=== PATIENT | male | born 1980 | race Native Hawaiian/Other Pacific Islander ===

== ENCOUNTER 2017-03-27 11:33 | Emergency (ER) | payer SELFPAY ==
[2017-03-27 11:47] VITALS: O2SAT 100
[2017-03-27 13:03] LABS: BASO # 0.1 K/uL (0.0-0.2); BASO % 1.1 % (0.0-2.0); EOS % 0.4 % (0.0-4.0); HEMATOCRIT 45.3 % (35.0-51.0); LYMPH # 1.8 K/uL (1.0-4.3); LYMPH % 27.5 % (20.0-40.0); MEAN CELL VOLUME 75.7 fL (80.0-94.0); MEAN CORPUSCULAR HEMOGLOBIN 24.2 pg (27.0-31.0); MEAN CORPUSCULAR HGB CONC 31.9 g/dL (33.0-37.0); MEAN PLATELET VOLUME 10.7 fL (7.2-11.7); MONO # 0.5 K/uL (0.0-0.8); RED CELL DISTRIBUTION WIDTH 14.5 % (11.5-14.5); WHITE BLOOD COUNT 6.6 K/uL (4.8-10.8)
[2017-03-27] MEDS ORDERED: Acetaminophen-Codeine 300/30 mg Tab PO STA (13:05)
[2017-03-27 13:14] LABS: CHLORIDE 102 mmol/L (98-107); SODIUM 137 mmol/L (132-148)
[2017-03-27] MEDS ORDERED: Acetaminophen-Codeine 300/30 mg Tab PO ONE (13:15)
[2017-03-27 13:16] LABS: BILIRUBIN,TOTAL 0.7 mg/dL (0.2-1.3); CARBON DIOXIDE 23 mmol/L (22-30); GFR AFRICAN-AMERICAN > 60
[2017-03-27 13:17] LABS: ALB/GLOB RATIO 1.2 (1.0-2.1); ALKALINE PHOSPHATASE 55 U/L (38-126); ALT/SGPT 34 U/L (21-72); AST/SGOT 26 U/L (17-59); BLOOD UREA NITROGEN 11 mg/dL (9-20); GLUCOSE,RANDOM 108 mg/dL (75-110); TOTAL PROTEIN 7.7 g/dL (6.3-8.3)
--- NOTE | 2017-03-27 14:02 | C.PDOC ---
History Of Present Illness 36 y/o male presents to the ED with complaints of right leg pain. Pt reports having large vericose veins for several years but over the last week they have become very painful, worse with ambulation. Pt states he recently arrived [place] from [place]. Patient denies fever, SOB, palpitations, chest pain, rashes, h/ o DVT in himself or immediate family. Time Seen by Provider: 03/27/17 12:13 Chief Complaint (Nursing): Lower Extremity Problem/Injury History Per: Patient History/Exam Limitations: no limitations Onset/Duration Of Symptoms: Persistent Current Symptoms Are (Timing): Worse Severity: Moderate Recent travel outside of the [place]: Yes Past Medical History Reviewed: Historical Data, Nursing Documentation, Vital Signs Vital Signs: Last Vital Signs Temp 98 F 03/27/17 16:15 Pulse 85 03/27/17 16:15 Resp 20 03/27/17 16:15 BP 110/70 03/27/17 16:15 Pulse Ox 100 03/27/17 16:15 - Medical History PMH: No Chronic Diseases Family History: States: No Known Family Hx - Social History Hx Alcohol Use: No Hx Substance Use: No - Immunization History Hx Tetanus Toxoid Vaccination: No Hx Influenza Vaccination: No Hx Pneumococcal Vaccination: No Review Of Systems Except As Marked, All Systems Reviewed And Found Negative. Constitutional: Negative for: Fever, Chills Cardiovascular: Negative for: Chest Pain, Palpitations Respiratory: Negative for: Shortness of Breath Musculoskeletal: Positive for: Other (right leg pain) Skin: Negative for: Rash Physical Exam - Physical Exam Appears: Well, Non-toxic, No Acute Distress Skin: Warm, Dry, No Rash Head: Normacephalic Chest: Symmetrical Cardiovascular: Rhythm Regular Respiratory: Normal Breath Sounds, No Rales, No Rhonchi, No Wheezing Gastrointestinal/Abdominal: Normal Exam, Bowel Sounds, Soft, No Tenderness Extremity: Normal ROM, Tenderness (diffuse right lower leg tenderness to palpation), Capillary Refill (< 2 sec all digits ), Other (right leg with large varicose veins from mid-thigh and distal, distal aspect right lower leg with several areas of chronic skin color changes; no erythema) Pulses: Left Dorsalis Pedis: Normal, Right Dorsalis Pedis: Normal Neurological/Psych: Oriented x3, Normal Motor, Normal Sensation Gait: Steady ED Course And Treatment - Laboratory Results Result Diagrams: 03/27/17 12:54 03/27/17 12:54 O2 Sat by Pulse Oximetry: 100 (room air) Pulse Ox Interpretation: Normal Progress Note: Plan: Blood work, venous doppler RLE ordered and reviewed. Patient given PO tylenol #3. Reevaluation Time: 16:00 Reassessment Condition: Improved (Patient reassessed, is resting comfortably and pain has improved. He is able to ambulate normally in the ED. Venous doppler (-) for acute DVT, (+) for valve incompetence of GSF. Patient given rx for naprosyn and instructed to follow up with vascular surgeon within 1 week. He understands he should return to ED if symptoms worsen.) Disposition Counseled Patient/Family Regarding: Studies Performed, Diagnosis, Need For Followup, Rx Given - Disposition Referrals: Chandana Clements Jr., MD [Staff Provider] - [facility] [Outside] Disposition: HOME/ ROUTINE Disposition Time: 16:00 Condition: STABLE Additional Instructions: FOLLOW UP WITH DR CLEMENTS WITHIN 1 WEEK USE PAIN MEDICATION DIRECTED RETURN TO ER IF SYMPTOMS WORSEN Prescriptions: Naproxen [Naprosyn Tab] 375 mg PO BID PRN #20 tab PRN Reason: pain Instructions: Venous Insufficiency (GEN) Print Language: ARGENTINE - POA Present On Arrival: None - Clinical Impression Clinical Impression: Venous insufficiency of right leg - Scribe Statement The provider has reviewed the documentation as recorded by the Suraj Fung Provider Attestation: All medical record entries made by the Erikaibaz were at my direction and personally dictated by me. I have reviewed the chart and agree that the record accurately reflects my personal performance of the history, physical exam, medical decision making, and the department course for this patient. I have also personally directed, reviewed, and agree with the discharge instructions and disposition.
[2017-03-27 16:16] VITALS: BP 110/70; PULSE 85; RESP 20; TEMP 98
--- NOTE | 2017-03-28 15:16 | VASCLAB ---
PROCEDURE: Right Lower Extremity Venous Duplex Exam. HISTORY: RIGHT LEG PAIN, SWELLING, R/O DVT/PHLEBITIS PRIORS: None. TECHNIQUE: Right common femoral, femoral, popliteal and posterior tibial, peroneal and great saphenous veins were evaluated. Flow was assessed with color Doppler, compressibility, assessment of phasic flow and augmentation response. Report prepared by SHASHI Rhodes FINDINGS: RIGHT: 1. Common Femoral Vein: 1.1. Compressibility - Fully compressible: Thrombus - None: Flow - Phasic: Augmentation -Normal: Reflux - None. 2. Femoral Vein: 2.1. Compressibility - Fully compressible: Thrombus - None: Flow - Phasic: Augmentation -Normal: Reflux - None. 3. Popliteal Vein: 3.1. Compressibility - Fully compressible: Thrombus - None: Flow - Phasic: Augmentation -Normal: Reflux - None. 4. Posterior Tibial Vein: 4.1. Compressibility - Fully compressible: Thrombus - None: Flow - Phasic: Augmentation -Normal: Reflux - None. 5. Peroneal Vein: 5.1. Compressibility - Fully compressible: Thrombus - None: Flow - Phasic: Augmentation -Normal: Reflux - None. 6. Great Saphenous Vein: 6.1. Compressibility - Fully compressible: Thrombus -None: Flow - Phasic: Augmentation - Normal: Reflux - Moderate.3.66 seconds OTHER FINDINGS: IMPRESSION: No evidence of deep or superficial vein thrombosis of the right lower extremity. Moderate valvular incompetence noted of the right great saphenous vein, and of multiple varicose veins in the calf. Normal venous flow noted in the left common femoral vein.
== END 2017-03-27 16:16 | disposition home or self-care (01) ==
LOC: C.ER 11:33
DX: I87.2 Venous insufficiency (chronic) (peripheral) (principal)